=== PATIENT | female | born 1935 | race Caucasian/White ===

== ENCOUNTER 2019-05-18 08:23 | Day surgery (SDC) | payer MEDICARE ==
[2019-05-14 11:08] LABS: BASOPHILS # (AUTO) 0.1 X10'3 (0-0.2); BASOPHILS % (AUTO) 0.8 % (0-1); EOSINOPHILS # (AUTO) 0.2 X10'3 (0-0.9); EOSINOPHILS % (AUTO) 2.1 % (0-6); LYMPHOCYTES # (AUTO) 2.1 X10'3 (1.1-4.8); LYMPHOCYTES % (AUTO) 22.9 % (21-51); MEAN CORPUSCULAR HEMOGLOBIN 30.7 PG (27.0-31.0); MEAN CORPUSCULAR HGB CONC 33.3 g/dL (33.0-36.5); MEAN CORPUSCULAR VOLUME 92.4 FL (78-98); MEAN PLATELET VOLUME 7.5 FL (7.4-10.4); MONOCYTES % (AUTO) 11.4 % (2-12); NEUTROPHILS # (AUTO) 5.7 X10'3 (1.8-7.7); NEUTROPHILS % (AUTO) 62.8 % (42-75); PRE OP HEMATOCRIT 32.3 % (35.0-45.0); PRE OP PLATELET COUNT 271 X10'3 (140-440); RED CELL DISTRIBUTION WIDTH 14.6 % (11.5-14.5)
[2019-05-14 11:12] LABS: PRE OP HEMOGLOBIN 10.7 g/dL (12.0-16.0)
[2019-05-14 11:22] LABS: PRE OP PROTIME 34.5 SECONDS (9.0-12.0)
[2019-05-14 11:37] LABS: ALBUMIN 3.4 G/DL (3.4-5.0); ALBUMIN/GLOBULIN RATIO 0.8 (1.1-1.5); ALKALINE PHOSPHATASE 71 IU/L (46-116); BLOOD UREA NITROGEN 26 MG/DL (7-18); BUN/CREATININE RATIO 19.8 (6.6-38.0); CALCIUM 8.8 MG/DL (8.5-10.1); CHLORIDE 104 MMOL/L (99-107); CREATININE 1.31 MG/DL (0.40-0.90); PRE OP ALT 27 U/L (30-65); PRE OP ANION GAP 10 (8-16); PRE OP AST 20 U/L (10-37); PRE OP BILIRUB, TOTAL 0.3 MG/DL (0.0-1.0); PRE OP GLUCOSE 100 MG/DL (70-104); PRE OP SODIUM 145 MMOL/L (135-145); TOTAL CARBON DIOXIDE 30.6 MMOL/L (24-32); TOTAL PROTEIN 7.6 G/DL (6.4-8.2); eGFR 38 ML/MIN
[2019-05-14 11:40] LABS: PRE OP INR 3.7 INR
[~2019-05-18] VITALS: Ht 165.1 cm; Wt 69.0 kg
[2019-05-18] VITALS (8 sets, daily range): BP systolic 140–159; BP diastolic 52–84
[~2019-05-18 08:23] MED LIST: ASCO-10 PO; BUPIVAcaine/PF 2.5mg/ml (0.25%) 10ml vial ONE; CARV3.1244 PO; CHOL10002 PO; DICL50TA6 PO; DIGO125T78 PO; DOCUMENT DATE & TIME OF BETA-BLOCKER PO ONE; FAMO40TA59 PO; FLUT1BLS13 INH; FLUTICASONE BOTHNARES; GLIM2TAB3 PO; LUBI8CAP PO; MAGN400T28 PO; METF-950 PO; PARO-62 PO; TORS10TA17 PO; WARF4TAB69; albuterol 2.5 MG/3 ML nebule NEB ONE; cefazolin/dext.iso 2gm/50ml 50 ML IV ONE; famotidine 20mg tablet PO ONE
[2019-05-18] MEDS ORDERED: ringers solution, lacted 1,000 ML IV SCH (09:52)
[2019-05-18] MEDS ORDERED: hydrALAZINE 20mg/ml inj. IV PRN (09:55)
[2019-05-18] MEDS ORDERED: ondansetron/PF 4mg/2ml inj IV PRN (09:55)
[2019-05-18] MEDS ORDERED: morphine 4 MG/ML inj SYRINge IV PRN ×2 (09:55)
[2019-05-18] MEDS ORDERED: labetalol 20mg/4ml (5mg/ml) syringe IV PRN (09:55)
[2019-05-18] MEDS ORDERED: fentaNYL/PF 50MCG/1 ML 2ML syringe IV PRN ×2 (09:55)
[2019-05-18] MEDS ORDERED: LIDOcaine 0.5% (5mg/ml) 50ml vial ONE (10:34)
[2019-05-18] MEDS ORDERED: midazolam 2 mg/2 ml injection ONE (10:36)
[2019-05-18] MEDS ORDERED: fentaNYL/PF 50MCG/1 ML 2ML syringe ONE (10:36)
--- NOTE | 2019-05-18 11:12 | NUR ---
ADMITTED TO PACU FROM OR ACCOMPANIED BY ANESTHESIA. INITIAL PHYSICAL ASSESSMENT DONE AND RECORDED. AWAKE AND RESPONSE ON ARRIVE YO PACU, REPORT RECEIVED FROM ANESTHESIA.
--- NOTE | 2019-05-18 12:22 | NUR ---
Discharge criteria met, discharge instructions given, demonstrates verbal understanding. Discharged home in good condition.
== END 2019-05-18 12:22 | disposition home or self-care (01) ==
LOC: PAS 08:23
PROVIDERS: ATTEND Orthopaedic Surgery Hand Surgery
DX: G56.01 Carpal tunnel syndrome, right upper limb (principal); Q82.8 Other specified congenital malformations of skin; D36.12 Benign neoplasm of peripheral nerves and autonomic nervous system, upper limb, including shoulder; I10 Essential (primary) hypertension; Z79.01 Long term (current) use of anticoagulants; Z79.899 Other long term (current) drug therapy; Z95.0 Presence of cardiac pacemaker; Z96.643 Presence of artificial hip joint, bilateral
CPT/HCPCS: 11200; 36415; 64721; 80053; 82948; 85025; 85610; 85730; 93005; J2001; J2250; J3010; J3490; 88305; A4215; J7120

== ENCOUNTER 2019-06-10 05:08 | Day surgery (SDC) | payer MEDICARE ==
[2019-06-05 11:55] LABS: CLARITY,URINE CLEAR (Clear); COLOR,URINE STRAW (Yellow); GLUCOSE, URINE NEGATIVE (Neg); KETONES,URINE NEGATIVE (Neg); LEUKOCYTE ESTERASE ,URINE NEGATIVE (Neg); NITRITES, URINE NEGATIVE (Neg); OCCULT BLOOD,URINE NEGATIVE (Neg); PH,URINE 5.5 (4.8-8.0); PROTEIN,URINE NEGATIVE (Neg); UROBILINOGEN,URINE 0.2 E.U/dL (0.2-1.0)
[2019-06-05 11:55] LABS: BASOPHILS # (AUTO) 0.1 X10'3 (0-0.2); BASOPHILS % (AUTO) 0.6 % (0-1); EOSINOPHILS # (AUTO) 0.1 X10'3 (0-0.9); EOSINOPHILS % (AUTO) 1.6 % (0-6); LYMPHOCYTES # (AUTO) 1.9 X10'3 (1.1-4.8); LYMPHOCYTES % (AUTO) 21.3 % (21-51); MEAN CORPUSCULAR HEMOGLOBIN 31.7 PG (27.0-31.0); MEAN CORPUSCULAR HGB CONC 34.6 g/dL (33.0-36.5); MEAN CORPUSCULAR VOLUME 91.6 FL (78-98); MEAN PLATELET VOLUME 7.4 FL (7.4-10.4); MONOCYTES % (AUTO) 11.3 % (2-12); NEUTROPHILS # (AUTO) 5.7 X10'3 (1.8-7.7); NEUTROPHILS % (AUTO) 65.2 % (42-75); PRE OP HEMATOCRIT 29.5 % (35.0-45.0); PRE OP PLATELET COUNT 288 X10'3 (140-440); RED BLOOD COUNT 3.22 X10'6 (4.20-5.60)
[2019-06-05 11:59] LABS: UA COLLECTION TYPE CLN CATCH MIDSTREAM
[2019-06-05 12:03] LABS: PRE OP HEMOGLOBIN 10.2 g/dL (12.0-16.0); PRE OP PROTIME 20.9 SECONDS (9.0-12.0)
[2019-06-05 12:04] LABS: ALBUMIN 3.4 G/DL (3.4-5.0); ALBUMIN/GLOBULIN RATIO 0.8 (1.1-1.5); ALKALINE PHOSPHATASE 72 IU/L (46-116); BLOOD UREA NITROGEN 23 MG/DL (7-18); BUN/CREATININE RATIO 16.2 (6.6-38.0); CALCIUM 8.6 MG/DL (8.5-10.1); CHLORIDE 102 MMOL/L (99-107); CREATININE 1.42 MG/DL (0.40-0.90); PRE OP ALT 29 U/L (30-65); PRE OP ANION GAP 9 (8-16); PRE OP AST 21 U/L (10-37); PRE OP BILIRUB, TOTAL 0.5 MG/DL (0.0-1.0); PRE OP GLUCOSE 100 MG/DL (70-104); PRE OP POTASSIUM 4.2 MMOL/L (3.4-5.1); PRE OP SODIUM 142 MMOL/L (135-145); TOTAL CARBON DIOXIDE 30.8 MMOL/L (24-32); TOTAL PROTEIN 7.6 G/DL (6.4-8.2); eGFR 35 ML/MIN
[2019-06-05 12:06] LABS: PRE OP INR 2.1 INR
[2019-06-10] VITALS (21 sets, daily range): BP systolic 123–144; BP diastolic 58–80
[~2019-06-10] VITALS: Ht 165.1 cm; Wt 69.0 kg
[~2019-06-10 05:08] MED LIST changes: -BUPIVAcaine/PF 2.5mg/ml (0.25%) 10ml vial ONE; -DICL50TA6 PO; -DOCUMENT DATE & TIME OF BETA-BLOCKER PO ONE; -FLUT1BLS13 INH; -albuterol 2.5 MG/3 ML nebule NEB ONE; -cefazolin/dext.iso 2gm/50ml 50 ML IV ONE; -famotidine 20mg tablet PO ONE; +ringers solution, lacted 1,000 ML IV SCH
[2019-06-10] MEDS ORDERED: clindamycin-Cleocin 900mg/D5W 50 ML IV ONE (05:30)
[2019-06-10] MEDS ORDERED: famotidine 20mg tablet PO ONE (05:30)
[2019-06-10] MEDS ORDERED: LIDOcaine 1% (10mg/ml) 2ml vial ONE (05:50)
[2019-06-10] MEDS ORDERED: BUPIVAcaine/PF 2.5 mg/ml (0.25%) 30ml vial ONE (07:29)
[2019-06-10] MEDS ORDERED: ringers solution, lacted 1,000 ML IV SCH (08:28)
[2019-06-10] MEDS ORDERED: proCHLORperazine 10 MG/2 ml inj IV PRN (08:30)
[2019-06-10] MEDS ORDERED: ondansetron/PF 4mg/2ml inj IV PRN (08:30)
[2019-06-10] MEDS ORDERED: morphine 4 MG/ML inj SYRINge IV PRN ×2 (08:30)
[2019-06-10] MEDS ORDERED: meperidine/PF 25mg/ml syringe IV PRN ×3 (08:30)
[2019-06-10] MEDS ORDERED: fentaNYL/PF 50MCG/1 ML 2ML syringe ONE (09:08)
[2019-06-10] MEDS ORDERED: LIDOcaine 2% (20mg/ml) 5ml vial ONE (09:09)
[2019-06-10] MEDS ORDERED: dexamethasone sod phosphate 4mg/ml inj. ONE (09:09)
[2019-06-10] MEDS ORDERED: rocuronium 10mg/ml inj IV ONE (09:09)
[2019-06-10] MEDS ORDERED: propofol inj 20 ML IV ONE (09:09)
[2019-06-10] MEDS ORDERED: midazolam 2 mg/2 ml injection ONE (09:09)
[2019-06-10] MEDS ORDERED: glycopyrrolate 0.2mg/ml inj ONE (09:57)
[2019-06-10] MEDS ORDERED: desflurane 240ml liquid inh. IH ONE (09:57)
[2019-06-10] MEDS ORDERED: neostigmine methylsulfate 1 MG/ML 10ml vial ONE (09:57)
[2019-06-10] MEDS ORDERED: ondansetron/PF 4mg/2ml inj ONE (10:45)
--- NOTE | 2019-06-10 11:02 | NUR ---
Received from OR via BED, accompanied by Anesthesiologist DR DOCKERY and report given by Anesthesiologist. PT VERY DROWSY, NO S/S OF DISTRESS/DISCOMFORT, ABDOMEN W/2 LAP SITES W/BANDAIDS CDI. Addendum: 06/10/19 at 1134 by Hanh Rojas RN Amended: Links added.
[2019-06-10] MEDS ORDERED: acetaminophen 1,000mg/100ml IV 100 ML IV ONE (14:20)
--- NOTE | 2019-06-10 14:22 | NUR ---
PT STABLE, CHIU'S X 4, REMAINS DROWSY, SA02 DROPS TO LOW TO MID 80'S WHEN NC OFF PT DRIFTS OFF TO SLEEP, PT C/O ABDOMINAL PAIN, DR SARKIS CESAR, ORDERED IV TYLENOL, PT'S DAUGHTER AT BEDSIDE. Addendum: 06/10/19 at 1424 by Hanh Rojas RN Amended: Links added.
--- NOTE | 2019-06-10 16:22 | NUR ---
PT AWAKE, SA02 IMPROVED ON ROOM AIR, PT UP TO BSC FOR VOID, D/C INSTRUCTIONS GIVEN AND GONE OVER W/PT AND PTS DAUGHTER, BOTH VERBALIZE UNDERSTANDING, PT D/CD TO HOME VIA W/C TO PRIVATE VEHICLE W/O INCIDENT. Addendum: 06/10/19 at 1733 by Hanh Rojas RN Amended: Links added.
--- NOTE | 2019-06-12 09:54 | NUR ---
RECEIVED PHONE CALL FROM PTS SON YESTERDAY AFTERNOON THAT THE PTS IV WAS STILL PRESENT ON HER LEFT ARM, PT REQUESTED THAT I COME TO HER HOME AND REMOVE IT. I WENT TO [facility] YESTERDAY AROUND 6 PM, PT WAS A/O X4, FAMILY PRESENT, IV SITE CLEAR, CLEANSED W/IODINE AND ALCOHOL, D/DC PIV, INTACT, 2X2 APPLIED W/COBAN, PT REQUESTED I LOOK AT HER INCISION SITES, 2 LAP SITES W/ISHMAEL INTACT, SITES CLEAR. PT PLEASANT, NO BLEEDING TO PIV SITE, FAMILY AND PT COMFORTABLE W/MY VISIT. Addendum: 06/12/19 at 1007 by Hanh Rojas RN Amended: Links added.
== END 2019-06-10 16:22 | disposition home or self-care (01) ==
LOC: PAS 05:08
PROVIDERS: ATTEND Surgery
PROC: 0YU80JZ Supplement Left Femoral Region with Synthetic Substitute, Open Approach (ICD-10-PCS; principal; 2019-06-10 09:57)
DX: K41.90 Unilateral femoral hernia, without obstruction or gangrene, not specified as recurrent (principal); R10.32 Left lower quadrant pain; E11.9 Type 2 diabetes mellitus without complications; J44.9 Chronic obstructive pulmonary disease, unspecified
CPT/HCPCS: 36415; 49550; 80053; 81003; 82948; 85025; 85610; 85730; C1781; J0131; J1100; J2001; J2250; J2405; J2704; J2710; J3010; J3490; J7120; A4215; A4314; A4618; A6258

== ENCOUNTER 2019-07-13 17:23 | Inpatient (IN) | payer MEDICARE ==
[~2019-07-13] VITALS: Ht 165.1 cm; Wt 68.9 kg
[~2019-07-13 17:23] MED LIST changes: -WARF4TAB69; +WARF4TAB69 PO; -ringers solution, lacted 1,000 ML IV SCH
[2019-07-13 18:18] LABS: BASOPHILS # (AUTO) 0.1 X10'3 (0-0.2); BASOPHILS % (AUTO) 0.9 % (0-1); EOSINOPHILS # (AUTO) 0.2 X10'3 (0-0.9); EOSINOPHILS % (AUTO) 2.6 % (0-6); HEMATOCRIT 29.1 % (35.0-45.0); HEMOGLOBIN 9.9 g/dl (12.0-16.0); LYMPHOCYTES # (AUTO) 1.9 X10'3 (1.1-4.8); LYMPHOCYTES % (AUTO) 22.1 % (21-51); MEAN CORPUSCULAR HEMOGLOBIN 31.2 PG (27.0-31.0); MEAN CORPUSCULAR VOLUME 91.7 FL (78-98); MEAN PLATELET VOLUME 7.5 FL (7.4-10.4); MONOCYTES % (AUTO) 11.9 % (2-12); NEUTROPHILS # (AUTO) 5.2 X10'3 (1.8-7.7); NEUTROPHILS % (AUTO) 62.5 % (42-75); PLATELET COUNT 237 X10'3 (140-440); RED BLOOD COUNT 3.18 X10'6 (4.20-5.60); RED CELL DISTRIBUTION WIDTH 14.9 % (11.5-14.5); WHITE BLOOD COUNT 8.4 X10'3 (4.5-11.0)
[2019-07-13] MEDS ORDERED: iohexol 300mg/ml 100ml inj. ONE (18:20)
[2019-07-13 18:30] LABS: PARTIAL THROMBOPLASTIN TIME 36 SECONDS (22-32)
[2019-07-13 18:36] LABS: ANION GAP 10 (8-16); BLOOD UREA NITROGEN 21 MG/DL (7-18); BUN/CREATININE RATIO 20.4 (6.6-38.0); CHLORIDE 106 MMOL/L (99-107); CREATININE 1.03 MG/DL (0.40-0.90); GLUCOSE 84 MG/DL (70-104); POTASSIUM 3.8 MMOL/L (3.5-5.1); SODIUM 142 MMOL/L (135-145); TOTAL CARBON DIOXIDE 26.5 MMOL/L (24-32)
[2019-07-13 18:37] LABS: ALANINE AMINOTRANSFERASE 20 U/L (12-78); ALBUMIN 3.5 G/DL (3.4-5.0); ALBUMIN/GLOBULIN RATIO 0.9 (1.1-1.5); ALKALINE PHOSPHATASE 60 IU/L (46-116); ASPARTATE AMINO TRANSFERASE 25 U/L (10-37); BILIRUBIN,TOTAL 0.4 MG/DL (0.1-1.0); CALCIUM 8.7 MG/DL (8.5-10.1); TOTAL PROTEIN 7.3 G/DL (6.4-8.2); eGFR 51 ML/MIN
[2019-07-13] MEDS: MESSAGE TO NURSING PO NR (18:45)
[2019-07-13] MEDS ORDERED: CALC-331 PO (20:42)
[2019-07-13] MEDS ORDERED: ASPI81TA52 PO (20:42)
[2019-07-13] MEDS ORDERED: ATOR40TA72 PO (20:42)
[2019-07-13] MEDS ORDERED: FISH12002 PO (20:42)
[2019-07-13] MEDS ORDERED: ZIN220C PO (20:42)
[2019-07-13] MEDS ORDERED: dextrose ORAL solution 15 GM/59 ML bottle PO PRN ×2 (20:55)
[2019-07-13] MEDS ORDERED: dextrose 50%-water 50ml dispensing syringe IV PRN ×2 (20:55)
[2019-07-13] MEDS ORDERED: glucagon, human recombinant 1mg kit SUBCUT PRN (20:55)
[2019-07-13] MEDS ORDERED: magnesium hydroxide 30ml (MOM) UD suspension PO PRN (20:55)
[2019-07-13] MEDS ORDERED: morphine 2 MG/ML inj. syringe IV PRN ×2 (20:55)
[2019-07-13] MEDS ORDERED: MESSAGE TO PHARMACY PO ONE (20:55)
[2019-07-13] MEDS ORDERED: acetaminophen 325mg tablet PO PRN ×2 (20:55)
[2019-07-13] MEDS ORDERED: insulin Lispro (HumaLOG) vial - multi-dose SQ SCH (20:55)
[2019-07-13] MEDS ORDERED: ondansetron/PF 4mg/2ml inj IV PRN (20:55)
[2019-07-13] MEDS ORDERED: mag hydrox/Alum hydrox/simeth 30ml oral suspension PO PRN (20:55)
[2019-07-13] MEDS: insulin glargine (Lantus) pen - multi-dose SQ SCH (21:00)
--- NOTE | 2019-07-13 21:00 | NUR ---
PT ALREADY EATING, BLOOD SUGAR WAS 84 ON HER LABS SO I POSTPONED NEXT BLOOD SUGAR TO TOMORROW AM.
[2019-07-13 21:24] LABS: HEMOGLOBIN A1C 6.7 % (4.5-6.2)
[2019-07-13 21:40] VITALS: BP 150/68
[2019-07-13] MEDS ORDERED: warfarin 4mg tablet PO ONE (23:00)
[2019-07-14] VITALS: BP 163/50
[2019-07-14] MEDS: HYDROcodone/acetaminophen 5mg/325mg tablet PO PRN ×4 (00:02→20:13)
[2019-07-14 06:04] LABS: BASOPHILS # (AUTO) 0.1 X10'3 (0-0.2); BASOPHILS % (AUTO) 0.8 % (0-1); EOSINOPHILS # (AUTO) 0.2 X10'3 (0-0.9); HEMATOCRIT 26.8 % (35.0-45.0); HEMOGLOBIN 9.2 g/dl (12.0-16.0); LYMPHOCYTES # (AUTO) 1.9 X10'3 (1.1-4.8); LYMPHOCYTES % (AUTO) 25.3 % (21-51); MEAN CORPUSCULAR HEMOGLOBIN 31.5 PG (27.0-31.0); MEAN CORPUSCULAR HGB CONC 34.4 g/dL (33.0-36.5); MEAN CORPUSCULAR VOLUME 91.5 FL (78-98); MEAN PLATELET VOLUME 7.6 FL (7.4-10.4); MONOCYTES % (AUTO) 12.6 % (2-12); NEUTROPHILS # (AUTO) 4.4 X10'3 (1.8-7.7); NEUTROPHILS % (AUTO) 58.3 % (42-75); PLATELET COUNT 213 X10'3 (140-440); RED BLOOD COUNT 2.93 X10'6 (4.20-5.60); RED CELL DISTRIBUTION WIDTH 14.5 % (11.5-14.5); WHITE BLOOD COUNT 7.6 X10'3 (4.5-11.0)
[2019-07-14 06:33] LABS: ANION GAP 8 (8-16); BLOOD UREA NITROGEN 21 MG/DL (7-18); BUN/CREATININE RATIO 20.8 (6.6-38.0); CALCIUM 8.3 MG/DL (8.5-10.1); CHLORIDE 107 MMOL/L (99-107); CREATININE 1.01 MG/DL (0.40-0.90); GLUCOSE 65 MG/DL (70-104); POTASSIUM 3.6 MMOL/L (3.5-5.1); SODIUM 142 MMOL/L (135-145); eGFR 52 ML/MIN
--- NOTE | 2019-07-14 06:57 | NUR ---
Patient in room [facility]. I have received report from PAULINA Benton and had the opportunity to ask questions and assume patient care.
--- NOTE | 2019-07-14 07:02 | NUR ---
Problems reprioritized. Patient report given, questions answered & plan of care reviewed with BRANDEN. Addendum: 07/14/19 at 0702 by Jef Wellington RN Amended: Links added.
[2019-07-14 08:00] VITALS: BP_SYST 138; BP_SYST 140; BP_SYST 141; BP_DIAS 49; BP_DIAS 50; BP_DIAS 52
[2019-07-14] MEDS ORDERED: GLIMEPIRIDE PO SCH (08:00)
[2019-07-14] MEDS ORDERED: non-formulary drug (Fish Oil/Borage/Flax/Om3,6,9#1 (Omega 3-6-9 1,200 mg Softgel) 1 CAP) PO SCH (08:00)
[2019-07-14] MEDS: vitamin D (cholecalciferol) 1,000 unit tablet PO SCH (08:03)
[2019-07-14] MEDS: calcium carbonate 500mg tablet PO SCH (08:03)
[2019-07-14] MEDS: aspirin 81mg tablet.DR PO SCH (08:04)
[2019-07-14] MEDS: magnesium oxide 400mg tablet PO SCH (08:04)
[2019-07-14] MEDS: ascorbic acid 500mg tablet PO SCH (08:04)
[2019-07-14] MEDS: digoxin 125mcg (0.125mg) tablet PO SCH (08:05)
[2019-07-14] MEDS: atorvastatin 20mg tablet PO SCH (08:05)
[2019-07-14] MEDS: carVEDilol 3.125mg tablet PO SCH ×2 (08:06→20:12)
[2019-07-14] MEDS: zinc sulfate 220mg capsule PO SCH (08:06)
[2019-07-14] MEDS: PARoxetine 20mg tablet PO SCH (08:07)
--- NOTE | 2019-07-14 08:39 | NUR ---
Patient family member Irvin contacted and asked to bring patients home supply torsemide and Amitiza to the nurses station when he comes in today.
--- NOTE | 2019-07-14 09:21 | NUR ---
DM consult: Pt with A1c 6.7, DM education not warranted at this time. Will continue to follow. Addendum: 07/14/19 at [address] Amended: Links added.
[2019-07-14] MEDS ORDERED: FLU VACC QS2019-20 36MOS UP/PF 60 MCG/0.5 ML SYRINGE IMVAC ONE (10:00)
[2019-07-14] MEDS: MESSAGE TO NURSING PO NR (10:00)
[2019-07-14] MEDS: albuterol 2.5 MG/3 ML nebule NEB SCH ×3 (11:03→19:43)
[2019-07-14 12:11] VITALS: BP 139/55
--- NOTE | 2019-07-14 12:47 | NUR ---
NOTIFIED REGARDING DARK BROWN STOOL WITH H&H TRENDING DOWN, MAY BE RELATED TO IRON SUPPLEMENTATION, CONTINUE TO MONITOR.
--- NOTE | 2019-07-14 18:30 | NUR ---
Problems reprioritized. Patient report given, questions answered & plan of care reviewed with Smita GALLARDO.
[2019-07-14] MEDS: budesonide 0.5mg/2ml UD nebule IH SCH (19:43)
[2019-07-14 20:00] VITALS: BP_SYST 104; BP_SYST 113; BP_SYST 131; BP_DIAS 47; BP_DIAS 50; BP_DIAS 51
[2019-07-14] MEDS: heparin, porcine 5000 units/ml vial SQ SCH (20:12)
[2019-07-14] MEDS ORDERED: MESSAGE TO PHARMACY PO SCH (21:00)
[2019-07-14] MEDS: insulin glargine (Lantus) pen - multi-dose SQ SCH (21:00)
[2019-07-14] MEDS ORDERED: famotidine 20mg tablet PO SCH (21:00)
[2019-07-14] MEDS ORDERED: warfarin 4mg tablet PO SCH (21:00)
--- NOTE | 2019-07-14 22:32 | NUR ---
Patient in room [facility]. I have received report from PAULINA Guo and had the opportunity to ask questions and assume patient care. Addendum: 07/14/19 at 2232 by Alyse Marsh RN Amended: Links added.
[2019-07-15] VITALS: BP 147/47
[2019-07-15] MEDS: HYDROcodone/acetaminophen 5mg/325mg tablet PO PRN ×3 (01:06→13:11)
[2019-07-15] MEDS: albuterol 2.5 MG/3 ML nebule NEB SCH ×2 (03:45→09:12)
[2019-07-15 06:13] LABS: EOSINOPHILS # (AUTO) 0.2 X10'3 (0-0.9); HEMOGLOBIN 9.2 g/dl (12.0-16.0); MEAN CORPUSCULAR HEMOGLOBIN 31.5 PG (27.0-31.0); NEUTROPHILS # (AUTO) 3.8 X10'3 (1.8-7.7); PLATELET COUNT 201 X10'3 (140-440); WHITE BLOOD COUNT 6.1 X10'3 (4.5-11.0)
[2019-07-15 06:16] LABS: BASOPHILS # (AUTO) 0.1 X10'3 (0-0.2); BASOPHILS % (AUTO) 0.9 % (0-1); EOSINOPHILS % (AUTO) 3.6 % (0-6); LYMPHOCYTES # (AUTO) 1.2 X10'3 (1.1-4.8); LYMPHOCYTES % (AUTO) 19.7 % (21-51); MEAN CORPUSCULAR HGB CONC 34.1 g/dL (33.0-36.5); MEAN CORPUSCULAR VOLUME 92.3 FL (78-98); MEAN PLATELET VOLUME 7.5 FL (7.4-10.4); MONOCYTES # (AUTO) 0.7 X10'3 (0-0.9); MONOCYTES % (AUTO) 12.3 % (2-12); NEUTROPHILS % (AUTO) 63.5 % (42-75); RED BLOOD COUNT 2.93 X10'6 (4.20-5.60); RED CELL DISTRIBUTION WIDTH 14.8 % (11.5-14.5)
[2019-07-15 06:17] LABS: CHLORIDE 106 MMOL/L (99-107); GLUCOSE 123 MG/DL (70-104); POTASSIUM 3.9 MMOL/L (3.5-5.1); SODIUM 142 MMOL/L (135-145); TOTAL CARBON DIOXIDE 28.3 MMOL/L (24-32)
[2019-07-15 06:18] LABS: ANION GAP 8 (8-16); BLOOD UREA NITROGEN 21 MG/DL (7-18); CALCIUM 8.8 MG/DL (8.5-10.1); CREATININE 1.05 MG/DL (0.40-0.90); eGFR 50 ML/MIN
--- NOTE | 2019-07-15 06:33 | NUR ---
Problems reprioritized. Patient report given, questions answered & plan of care reviewed with PAULINA Riojas. Addendum: 07/15/19 at 0634 by Alyse Marsh RN Amended: Links added.
--- NOTE | 2019-07-15 06:35 | NUR ---
Problems reprioritized. Patient report given, questions answered & plan of care reviewed with PAULINA Riojas. Addendum: 07/15/19 at 0635 by Alyse Marsh RN Amended: Links added.
[2019-07-15] MEDS: budesonide 0.5mg/2ml UD nebule IH SCH (09:12)
[2019-07-15] MEDS: zinc sulfate 220mg capsule PO SCH (09:37)
[2019-07-15] MEDS: aspirin 81mg tablet.DR PO SCH (09:37)
[2019-07-15] MEDS: vitamin D (cholecalciferol) 1,000 unit tablet PO SCH (09:37)
[2019-07-15] MEDS: ascorbic acid 500mg tablet PO SCH (09:37)
[2019-07-15] MEDS: carVEDilol 3.125mg tablet PO SCH (09:37)
[2019-07-15] MEDS: PARoxetine 20mg tablet PO SCH (09:37)
[2019-07-15] MEDS: digoxin 125mcg (0.125mg) tablet PO SCH (09:38)
[2019-07-15] MEDS: atorvastatin 20mg tablet PO SCH (09:38)
[2019-07-15] MEDS: calcium carbonate 500mg tablet PO SCH (09:38)
[2019-07-15] MEDS: magnesium oxide 400mg tablet PO SCH (09:47)
[2019-07-15] MEDS: heparin, porcine 5000 units/ml vial SQ SCH (09:47)
--- NOTE | 2019-07-15 15:00 | NUR ---
The patient and her son were givenalldischarge instructions.They both stated understanding and agreed with POC. All belongings accounted for. Pt was taken by wheelchair to private vehicle.
== END 2019-07-15 15:00 | disposition home health service (06) | DRG 920 ==
LOC: ER 17:24 → ED HOLD 21:08 → SUR 3N 21:39
PROVIDERS: ADMIT Internal Medicine; ATTEND Family Medicine
PROC: BW251ZZ Computerized Tomography (CT Scan) of Chest, Abdomen and Pelvis using Low Osmolar Contrast (ICD-10-PCS; 2019-07-13)
PROC: 3E02340 Introduction of Influenza Vaccine into Muscle, Percutaneous Approach (ICD-10-PCS; principal; 2019-07-14)
DX: L76.32 Postprocedural hematoma of skin and subcutaneous tissue following other procedure (principal); R71.0 Precipitous drop in hematocrit; Y83.8 Other surgical procedures as the cause of abnormal reaction of the patient, or of later complication, without mention of misadventure at the time of the procedure; Y92.89 Other specified places as the place of occurrence of the external cause; E11.22 Type 2 diabetes mellitus with diabetic chronic kidney disease; F32.9 Major depressive disorder, single episode, unspecified; I49.5 Sick sinus syndrome; E78.5 Hyperlipidemia, unspecified; Z96.643 Presence of artificial hip joint, bilateral; I48.0 Paroxysmal atrial fibrillation; I12.9 Hypertensive chronic kidney disease with stage 1 through stage 4 chronic kidney disease, or unspecified chronic kidney disease; N18.9 Chronic kidney disease, unspecified; J44.9 Chronic obstructive pulmonary disease, unspecified; S29.012A Strain of muscle and tendon of back wall of thorax, initial encounter; W01.0XXA Fall on same level from slipping, tripping and stumbling without subsequent striking against object, initial encounter; Z79.01 Long term (current) use of anticoagulants; Z79.84 Long term (current) use of oral hypoglycemic drugs; Z83.3 Family history of diabetes mellitus; Z86.73 Personal history of transient ischemic attack (TIA), and cerebral infarction without residual deficits; Z87.891 Personal history of nicotine dependence; Z90.710 Acquired absence of both cervix and uterus; Z95.0 Presence of cardiac pacemaker; Z23 Encounter for immunization; Y93.89 Activity, other specified; Y99.8 Other external cause status; Z88.8 Allergy status to other drugs, medicaments and biological substances; Z79.899 Other long term (current) drug therapy; Z79.82 Long term (current) use of aspirin
CPT/HCPCS: 36415; 71045; 71260; 74177; 76830; 76856; 80048; 80053; 80162; 82948; 83036; 83880; 85025; 85610; 85730; 86304; 87081; 93005; 94640; 94760; 99285; G0378; J1644; J1815; J7626; Q2037; Q9967